=== PATIENT | male | born 1945 | race Two or more races ===

== ENCOUNTER 2024-10-05 18:47 | Emergency (ER) | payer OTHER ==
[~2024-10-05] VITALS: Ht 167.6 cm; Wt 81.6 kg
[2024-10-05] MEDS ORDERED: TRANDATE300 MG PO (19:25)
[2024-10-05] MEDS ORDERED: SYNJARDY XR 101 EACH PO (19:26)
[2024-10-05] MEDS ORDERED: LIPITOR20 MG PO (19:26)
[2024-10-05] MEDS ORDERED: CHILDREN'S ASPI81 MG PO (19:26)
[2024-10-05] MEDS ORDERED: NORVASC5 MG PO (19:26)
[2024-10-05] MEDS ORDERED: AVAPRO300 MG PO (19:26)
[2024-10-05] MEDS ORDERED: ENALAPRILAT DIHYDRATE 2.5 MG/2 ML VIAL IV STA (20:14)
[2024-10-05 20:23] LABS: HEMOGLOBIN 13.9 g/dL (13-16.00); MEAN CELL VOLUME 94.6 fL (80.0-100.00); MEAN CORPUSCULAR HEMOGLOBIN 31.2 pg (27.00-32.0); PLATELET COUNT 351 K/uL (150-450); RED BLOOD COUNT 4.44 M/uL (4.00-6.00); RED CELL DISTRIBUTION WIDTH 13.4 % (11.5-14.5)
[2024-10-05] MEDS ORDERED: ENALAPRILAT DIHYDRATE 1.25 MG/ML VIAL IV ONE (20:23)
[2024-10-05 20:43] LABS: URINE APPEARANCE Clear; URINE BILIRRUBIN Negative (NEGATIVE); URINE BLOOD Negative; URINE COLOR Yellow; URINE KETONE Negative (NEGATIVE); URINE LEUKOCYTE Negative; URINE NITRATE Negative; URINE PROTEIN 30 (NEGATIVE); URINE UROBILINOGEN 0.2 E.U./dl
[2024-10-05 20:47] LABS: URINE BACTERIA 17.1 uL (0.0-1933); URINE EPITHELIAL CELLS 6.1 uL (0.0-38.8); URINE RBC 5.5 uL (0.0-20.8); URINE WBC 14.5 uL (0.0-23.2)
[2024-10-05 20:49] LABS: URINE CAST 0.29 uL (0.0-1.40); URINE GLUCOSE >=1000 MG/DL (NEGATIVE)
[2024-10-05 20:56] LABS: CALCIUM 9.9 mg/dL (8.5-10.1); CREATININE SERUM 1.74 mg/dL (0.70-1.30); GFR 38.04; POTASSIUM 4.02 mEq/L (3.5-5.1)
== END 2024-10-05 21:53 | disposition home or self-care (01) ==
LOC: ER 18:48
PROVIDERS: General Practice
DX: S09.8XXA Other specified injuries of head, initial encounter (principal); W19.XXXA Unspecified fall, initial encounter; Y93.89 Activity, other specified; Y92.89 Other specified places as the place of occurrence of the external cause; Y99.8 Other external cause status; R42 Dizziness and giddiness
CPT/HCPCS: 70450; 70490; 96365; 99284; J3490

== ENCOUNTER 2024-10-07 14:25 | Emergency (ER) | payer OTHER ==
[~2024-10-07] VITALS: Ht 167.6 cm; Wt 80.7 kg
[~2024-10-07 14:25] MED LIST: AVAPRO300 MG PO; CHILDREN'S ASPI81 MG PO; LIPITOR20 MG PO; NORVASC5 MG PO; SYNJARDY XR 101 EACH PO; TRANDATE300 MG PO
== END 2024-10-07 17:49 | disposition home or self-care (01) ==
LOC: ER 14:26
DX: R53.81 Other malaise (principal); I10 Essential (primary) hypertension; E11.9 Type 2 diabetes mellitus without complications; Z79.84 Long term (current) use of oral hypoglycemic drugs